=== PATIENT | male | born 1950 | race Caucasian/White ===

== ENCOUNTER 2017-03-14 18:17 | Emergency (ER) | payer MEDICARE ==
[~2017-03-14] VITALS: Ht 167.6 cm; Wt 69.4 kg
--- NOTE | 2017-03-14 18:51 | Emergency Room Report ---
History of Present Illness General Chief Complaint: Upper Respiratory Illness Source: Patient Present Illness HPI 67-year-old male presents to the emergency department complaining of cough with increased phlegm, nasal congestion, rhinorrhea, 7/10 in severity bodyaches subjective fevers and chills times one week. Patient presents with a bottle of Rocephin for which she explains was prescribed to him by his PMD. Patient states that often when he gets sick with these similar symptoms that she prescribe some 3 injections of antibiotic however she is unable to see him because of the holiday schedule. Patient denies neck pain or neck stiffness. Denies photophobia. Denies nausea, vomiting, constipation or diarrhea. Patient denies rashes, recent travel or ill contacts. Patient reports history of diabetes.Denies CP, Palpitations, LOC, AMS, dizziness, Changes in Vision, Sensation, paresthesias, or a sudden severe headache. Allergies: Coded Allergies: IBUPROFEN (Verified Allergy, Unknown, 03/14/17) Patient History Past Medical History: see triage record Past Surgical History: none Pertinent Family History: none Reviewed Nursing Documentation: PMH: Agreed, PSxH: Agreed Nursing Documentation-PMH Hx Hypertension: Yes Hx Diabetes: Yes Review of Systems All Other Systems: negative except mentioned in HPI Physical Exam Vital Signs Date Time Temp Pulse Resp B/P (MAP) Pulse Ox O2 Delivery O2 Flow Rate FiO2 03/14/17 18:24 98.1 87 16 151/93 96 Room Air Sp02 EP Interpretation: reviewed, normal General Appearance: no apparent distress, alert, GCS 15, non-toxic Head: normocephalic, atraumatic Eyes: bilateral eye normal inspection, bilateral eye PERRL ENT: hearing grossly normal, normal voice, TMs + canals normal, uvula midline, moist mucus membranes, nasal congestion, pharyngeal erythema - mild erythema, no exudates. Neck: full range of motion, supple/symm/no masses Respiratory: chest non-tender, normal breath sounds, no respiratory distress, no accessory muscle use, speaking full sentences, other - no rales. scant ronchi in the right lower lobe area Cardiovascular #1: regular rate, rhythm, normal capillary refill Gastrointestinal: normal bowel sounds, non tender, soft Rectal: deferred Musculoskeletal: back normal, gait/station normal, normal range of motion, non- tender, no calf tenderness Neurologic: alert, oriented x3, responsive, motor strength/tone normal, sensory intact, speech normal Skin: normal color, no rash, warm/dry, well hydrated Lymphatic: no adenopathy Medical Decision Making PA Attestation Dr. Aguirre is my supervising Physician whom patient management has been discussed with. Diagnostic Impression: Primary Impression: Atypical pneumonia Additional Impression: Cough in adult patient ER Course 67-year-old male presents to the emergency department complaining of cough with increased phlegm, nasal congestion, rhinorrhea, 7/10 in severity bodyaches subjective fevers and chills times one week. Patient presents with a bottle of Rocephin for which she explains was prescribed to him by his PMD. Patient states that often when he gets sick with these similar symptoms that she prescribe some 3 injections of antibiotic however she is unable to see him because of the holiday schedule. Patient denies neck pain or neck stiffness. Denies photophobia. Denies nausea, vomiting, constipation or diarrhea. Patient denies rashes, recent travel or ill contacts. Patient reports history of diabetes.Denies CP, Palpitations, LOC, AMS, dizziness, Changes in Vision, Sensation, paresthesias, or a sudden severe headache. Ddx considered but are not limited to URI, pneumonia, PE, strep pharyngitis, meningitis. Vital signs: Pt. is afebrile, the remaining VS are WNL H&PE are most consistent with URI- no meningeal signs, oropharynx is not involved, no evidence of strep pharyngitis. ORDERS: -CXR: Pt. DECLINES, order is canceled for this reason. ED INTERVENTIONS: None required at this time. DISCHARGE: At this time pt. is stable for d/c to home. Will provide printed patient care instructions, and any necessary prescriptions. Care plan and follow up instructions have been discussed with the patient prior to discharge. Last Vital Signs Date Time Temp Pulse Resp B/P (MAP) Pulse Ox O2 Delivery O2 Flow Rate FiO2 03/14/17 18:24 98.1 87 16 151/93 96 Room Air Disposition: HOME, SELF-CARE Condition: Stable Scripts Azithromycin* (ZITHROMAX*) 250 Mg Tablet 250 MG ORAL DAILY for 5 Days, #6 TAB Start with loading dose of 2 tablets on first day, then one tablet daily. Prov: Savanna Flor P.A. 03/14/17 Benzonatate* (TESSALON PERLE*) 100 Mg Capsule 100 MG ORAL THREE TIMES A DAY, #20 PERLE Prov: Savanna Flor 03/14/17 Codeine/Promethazine Hcl* (PROMETHAZINE-CODEINE SYRUP*) 118 Ml Syrup 5 ML ORAL Q6H Y for For Cough, #118 ML 0 Refills Prov: Savanna Flor 03/14/17 Patient Instructions: Upper Respiratory Infection, Adult Additional Instructions: Take medications as directed. Follow up with a Primary Care Provider in 3-5 days, even if your symptoms have resolved. --Please review list of primary care clinics, if you do not already have a primary care provider Return sooner to ED if new symptoms occur, or current symptoms become worse. Do not drink alcohol, drive, or operate heavy machinery while taking Cough Syrup as this may cause drowsiness. - Please note that this Emergency Department Report was dictated using [employer] inspector technology software, occasionally this can lead to erroneous entry secondary to interpretation by the dictation equipment. Savanna Flor Mar 14, 2017 18:51
[2017-03-14 19:10] VITALS: BP 148/83
[2017-03-14] MEDS ORDERED: AZITHROMYCIN250 MG ORAL (19:28)
[2017-03-14] MEDS ORDERED: PROMETHAZINE-C118 M1 ORAL (19:28)
[2017-03-14] MEDS ORDERED: TESSALON PERLE100 MG ORAL (19:28)
[2017-03-14 19:37] VITALS: BP 110/74
== END 2017-03-14 19:35 | disposition home or self-care (01) ==
LOC: EMR 18:55
DX: J18.9 Pneumonia, unspecified organism (principal); I10 Essential (primary) hypertension; E11.9 Type 2 diabetes mellitus without complications
CPT/HCPCS: 99282